=== PATIENT | female | born 1980 | race Caucasian/White ===

== ENCOUNTER 2022-10-24 14:09 | Emergency (ER) | payer MEDICAID ==
[~2022-10-24] VITALS: Ht 144.8 cm; Wt 45.5 kg
[2022-10-24] MEDS ORDERED: ACET-2247 PO (14:12)
[2022-10-24] MEDS ORDERED: TRAM-559 PO (17:35)
[2022-10-24 17:55] VITALS: BP 101/60
== END 2022-10-24 18:04 | disposition home or self-care (01) ==
LOC: EMS 14:13
DX: S09.90XA Unspecified injury of head, initial encounter (principal); S00.83XA Contusion of other part of head, initial encounter; W10.8XXA Fall (on) (from) other stairs and steps, initial encounter; Y93.01 Activity, walking, marching and hiking; Y92.89 Other specified places as the place of occurrence of the external cause; Y99.8 Other external cause status
CPT/HCPCS: 70450; 70486; 72125; 99284